=== PATIENT | female | born 1975 | race African-American/Black ===

== ENCOUNTER 2016-09-17 12:53 | Emergency (ER) | payer MEDICAID, OTHER ==
[~2016-09-17] VITALS: Ht 167.6 cm; Wt 81.0 kg
[2016-09-17 15:21] LABS: BASOPHILS % 0.8 % (0.0-2.0); EOSINOPHILS % 1.6 % (0.0-5.0); HEMATOCRIT. 33.1 % (36.0-48.0); LYMPHOCYTES % 32.4 % (20.0-50.0); MEAN CORPUSCULAR HEMOGLOBIN 27.3 pg (28.0-32.0); MEAN CORPUSCULAR HGB CONC 33.1 g/dL (31.0-37.0); MEAN CORPUSCULAR VOLUME 82.4 fL (81.0-99.0); MEAN PLATELET VOLUME 8.4 fl (7.4-10.4); NEUTROPHILS % 56.2 % (40.0-76.0); PLATELET 237 x1000/uL (130-400); RED BLOOD CELL COUNT 4.02 mill/uL (4.2-5.4); RED CELL DISTRIBUTION WIDTH 15.3 % (11.6-14.6); WHITE BLOOD COUNT 5.1 x1000/uL (4.5-11.0)
[2016-09-17 15:27] LABS: CHLORIDE 105 mEq/L (98-107)
[2016-09-17 15:28] LABS: INR 1.1; PROTHROMBIN TIME 10.9 sec
[2016-09-17 15:30] LABS: CALCIUM 8.7 mg/dL (8.5-10.1); INDEX HEMOLYSI 1 (1-3); INDEX ICTERIC 1 (1-4); INDEX LIPEMIC 1 (1-3)
[2016-09-17 15:35] LABS: ALANINE AMINOTRANSFERASE 18 IU/L (13-61); ALBUMIN 3.6 g/dL (3.4-5.0); ANION GAP 13; CARBON DIOXIDE 25 mEq/L (21-32); UREA NITROGEN BLOOD 10 mg/dL (7-21); eGFR > 60 mL/min (>60)
[2016-09-17 15:37] LABS: HCG SCREEN NEGATIVE
[2016-09-17 15:38] LABS: NT PRO B-TYPE NATRIURETIC PEP 71 pg/mL (5-125); TROPONIN I < 0.02 ng/mL (0.00-0.04)
[2016-09-17] MEDS ORDERED: ASPIRIN 325MG TABLET PO ONE (17:15)
[2016-09-17 19:24] VITALS: BP 120/78
== END 2016-09-17 19:36 | disposition home or self-care (01) ==
LOC: ER 13:03
DX: R07.9 Chest pain, unspecified (principal); Z95.0 Presence of cardiac pacemaker; Z86.73 Personal history of transient ischemic attack (TIA), and cerebral infarction without residual deficits; Z79.82 Long term (current) use of aspirin; F12.10 Cannabis abuse, uncomplicated; Z98.890 Other specified postprocedural states
CPT/HCPCS: 36415; 71010; 80053; 83880; 84484; 84703; 85025; 85610; 93005; 99285